=== PATIENT | male | born 1935 | race Caucasian/White ===

== ENCOUNTER 2018-08-27 15:20 | Emergency (ER) | payer OTHER, MEDICARE ==
[~2018-08-27 15:20] MED LIST: Adacel (T-DAP) 0.5 ML SYRINGE ONE; CEFAZOLIN 1 GM VIAL ONE; Iopamidol 370 76% 75 ML VIAL FS ONE; Sodium Chloride 0.9% 1,000 ML BAG ONE; Sodium Chloride 0.9% 100 ML BAG ONE; Sodium Chloride Irrig Solution 250 ML BOT ONE
[2018-08-27 15:35] LABS: Red Blood Cell (RBC) Count 3.68 mill/uL (4.70-6.10); White Blood Cell (WBC) Count 11.1 thou/uL (4.8-10.8)
[2018-08-27 15:36] LABS: #Eosinphils 0.3 thou/uL (0.0-0.7); #Lymphocytes 1.4 thou/uL (1.20-3.40); #Monocytes 0.8 thou/uL (0.11-0.59); #Neutrophils 8.4 thou/uL (1.40-6.50); %Basophils 1.3 % (0.0-1.0); %Eosinophils 2.4 % (0.0-10.0); %Lymphocytes 12.7 % (21.0-51.0); %Monocytes 7.3 % (0.0-10.0); %Neutrophils 76.3 % (42.0-75.0); Hemoglobin 11.2 g/dL (14.0-18.0); Mean Corpuscular Hemoglobin 30.4 pg (27.0-31.0); Mean Corpuscular Volume 89.5 fL (78.0-98.0); Mean Platelet Volume 6.7 fL (7.4-10.4); Platelet Count 145 thou/uL (130-400); RBC Distribution Width 13.5 % (11.5-14.5)
[2018-08-27 15:37] LABS: #Basophils 0.1 thou/uL (0.0-0.2)
[2018-08-27 15:41] LABS: INR-International Normal Ratio 1.3; PTT 27.7 SEC (22.9-36.1); Prothrombin Time 15.8 SEC (12.0-14.7)
[2018-08-27 15:50] LABS: ALT (SGPT) 50 U/L (8-55); AST (SGOT) 64 U/L (5-34); Albumin 3.6 g/dL (3.4-4.8); Alkaline Phosphatase 56 U/L (40-150); Anion Gap 14 mmol/L (10-20); BUN (Urea Nitrogen) 17 mg/dL (8.4-25.7); Bilirubin, Total 1.1 mg/dL (0.2-1.2); Calc. Creatinine Clearance 0 mL/min (70-130); Calcium 8.8 mg/dL (7.8-10.44); Carbon Dioxide 23 mmol/L (23-31); Chloride 106 mmol/L (98-107); Estimated GFR-MDRD 77; Globulin 2.5 g/dL (2.4-3.5); Glucose 123 mg/dL (83-110); Potassium 4.2 mmol/L (3.5-5.1); Protein, Total 6.1 g/dL (5.8-8.1); Sodium 139 mmol/L (136-145)
[2018-08-27] MEDS ORDERED: Fentanyl 100 MCG/2 ML VIAL ONE (15:57)
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
== END 2018-08-27 16:43 | disposition short-term general hospital (02) ==
LOC: EDBD → MADERS 15:20
DX: S72.401A Unspecified fracture of lower end of right femur, initial encounter for closed fracture (principal); S52.502B Unspecified fracture of the lower end of left radius, initial encounter for open fracture type I or II; S22.42XB Multiple fractures of ribs, left side, initial encounter for open fracture; S82.201B Unspecified fracture of shaft of right tibia, initial encounter for open fracture type I or II; S82.831B Other fracture of upper and lower end of right fibula, initial encounter for open fracture type I or II; I10 Essential (primary) hypertension; I25.10 Atherosclerotic heart disease of native coronary artery without angina pectoris; V89.2XXA Person injured in unspecified motor-vehicle accident, traffic, initial encounter
CPT/HCPCS: 25605; 27502; 36430; 70450; 71260; 72125; 74177; 80053; 83605; 83690; 85025; 85610; 85730; 86850; 86900; 86901; 90471; 90715; 96365; 96366; G0390; J0690; J3010; J7050; P9016